=== PATIENT | female | born 1985 | race Caucasian/White ===

== ENCOUNTER → 2017-09-03 18:15 | Observation (INO) ==
[2017-09-03 17:19] LABS: Bilirubin,Urine Negative (Negative); Blood,Urine Negative (Negative); Clarity,Urine Cloudy (Clear); Color,Urine Yellow (Yellow); Glucose,Urine (UA) Normal (Normal); Ketones,Urine Negative (Negative); Leukocyte Esterase,Urine Small (Negative); Nitrite,Urine Negative (Negative); PH,Urine 6.5 pH Units (5.0-8.0); Protein,Urine Negative (Neg-Trace); Specific Gravity,Urine 1.016 (1.010-1.025); Urobilinogen,Urine Normal (Normal)
[2017-09-03 17:20] LABS: Bacteria,Urine None Seen per hpf (None-Few); Hyaline Casts,Urine None Seen per lpf (None-Few); RBC,Urine 0-3 per hpf (0-3); Squamous Epithelial Cell,Urine Many per lpf (None-Few); WBC,Urine 0-3 per hpf (0-3)
[2017-09-03 17:22] LABS: Basophils % 0.3 %; Eosinophils # 0.1 K/mcL (0.0-0.6); Eosinophils % 0.6 %; Hematocrit 36.8 % (35.3-44.9); Hemoglobin 12.8 g/dL (11.5-15.4); Immature Granulocytes % 0.5 % (0-4); Lymphocytes # 2.5 K/mcL (0.6-4.6); Lymphocytes % 19.7 %; Mean Corpuscular HGB Conc 34.8 g/dL (31.6-35.5); Mean Corpuscular Hemoglobin 30.3 pg (28.0-33.3); Mean Platelet Volume 10.8 fL (9.4-12.4); Monocytes % 7.8 %; Neutrophils # 9.1 K/mcL (1.6-8.9); Platelet Count 185 K/mcL (140-400); Red Blood Count 4.23 M/mcL (3.82-4.97); Red Cell Distribution Width 13.3 % (11.5-14.5); Segmented Neutrophils % 71.1 %
[2017-09-03 17:33] LABS: Amphetamine Screen,Urine Negative ng/mL (Cutoff=1000); Barbiturate Screen,Urine Negative ng/mL (Cutoff=200); Benzodiazepines Screen,Urine Negative ng/mL (Cutoff=200); Cannabinoid Screen,Urine Negative ng/mL (Cutoff = 50); Cocaine Screen,Urine Negative ng/mL (Cutoff= 300); Opiate Screen,Urine Negative ng/mL (Cutoff=300); Phencyclidine Screen,Urine Negative ng/mL (Cutoff=25); Protein/Creatinine Ratio,Urine 0.16 mg/mg (0.00-0.20)
[2017-09-03 17:39] LABS: Alanine Aminotransferase 13 Units/L (7-52); Aspartate Amino Transferase 17 Units/L (13-39); BUN/Creatinine Ratio 24 (6-26); Blood Urea Nitrogen 10 mg/dL (6-20); Lactate Dehydrogenase 143 Units/L (140-271); Uric Acid 4.8 mg/dL (2.3-7.6); eGFR For African Americans > 60 (> 60); eGFR For Non-African Americans > 60 (> 60)
--- NOTE | 2017-09-03 18:11 | OB/GYN Progress Note ---
Date of Encounter: 09/03/17 Time of Encounter: 18:08 - Assessment and Plan (1) 36 weeks gestation of Current Visit: Yes Status: Acute Follow-up on Friday with Dr. Ochoa labor precautions given Labor precautions given Preeclampsia precautions given Discharge home (2) NST (non-stress test) reactive on surveillance Current Visit: Yes Status: Acute (3) Gestational hypertension Current Visit: Yes Status: Acute Start labetalol 100 mg twice a day per consult with Dr. Rodríguez Qualifiers: Trimester: third trimester Qualified Code(s): O13.3 - Gestational [ -induced] hypertension without significant proteinuria, third trimester Subjective - Subjective Principal diagnosis: GHTN Interval history: As well as is a 32-year-old who presents from the office today for -induced hypertension evaluation. She reports she has had a headache off and on for about a week. She has tried nothing at home to resolve this headache because it does not bother her enough to take anything. She denies blurry vision and epigastric pain. She endorses good movement and denies contractions, leakage of fluid, vaginal bleeding. Antepartum ROS: movement normal, no loss of fluid, no vaginal bleeding, no contractions Objective - Exam FHR: category 1 FHR comments: Baseline 130 Moderate variability Accelerations present 15 x 15 No decelerations FHR category I Rare contractions on toco-patient denies feeling them. Auscultation: bilateral: normal Abdomen: Present: normal appearance, soft, gravid Uterus: Present: normal, firm - Labs Labs: Abnormal lab results WBC 12.7 K/mcL (4.3-11.1) H 09/03/17 17:00 Neutrophils # 9.1 K/mcL (1.6-8.9) H 09/03/17 17:00 Creatinine 0.42 mg/dL (0.60-1.20) L 09/03/17 17:00 Urine Clarity Cloudy (Clear) A 09/03/17 16:35 Ur Leukocyte Esterase Small (Negative) H 09/03/17 16:35 Ur Squamous Epith Cells Many per lpf (None-Few) H 09/03/17 16:35
[~2017-09-03 18:15] MED LIST: Acetaminophen 325 MG TABLET PO ONE
== END | disposition home or self-care (01) ==
LOC: 1NENULAB
PROVIDERS: ADMIT Advanced Practice Midwife; ATTEND Advanced Practice Midwife

== ENCOUNTER → 2017-09-09 17:12 | Observation (INO) ==
[2017-09-09 15:42] LABS: Basophils % 0.2 %; Eosinophils % 0.3 %; Hematocrit 37.4 % (35.3-44.9); Hemoglobin 13.1 g/dL (11.5-15.4); Immature Granulocytes % 0.4 % (0-4); Lymphocytes # 2.1 K/mcL (0.6-4.6); Lymphocytes % 17.8 %; Mean Corpuscular Hemoglobin 30.5 pg (28.0-33.3); Mean Platelet Volume 11.3 fL (9.4-12.4); Monocytes # 0.8 K/mcL (0.0-1.3); Neutrophils # 8.6 K/mcL (1.6-8.9); Platelet Count 159 K/mcL (140-400); Red Cell Distribution Width 13.4 % (11.5-14.5); Segmented Neutrophils % 74.3 %
[2017-09-09 15:51] LABS: Amphetamine Screen,Urine Negative ng/mL (Cutoff=1000); Barbiturate Screen,Urine Negative ng/mL (Cutoff=200); Benzodiazepines Screen,Urine Negative ng/mL (Cutoff=200); Cannabinoid Screen,Urine Negative ng/mL (Cutoff = 50); Cocaine Screen,Urine Negative ng/mL (Cutoff= 300); Opiate Screen,Urine Negative ng/mL (Cutoff=300); Phencyclidine Screen,Urine Negative ng/mL (Cutoff=25)
[2017-09-09 16:00] LABS: Creatinine,Urine 26 mg/dL
[2017-09-09 16:02] LABS: Alanine Aminotransferase 14 Units/L (7-52); Aspartate Amino Transferase 21 Units/L (13-39); BUN/Creatinine Ratio 22 (6-26); Blood Urea Nitrogen 11 mg/dL (6-20); Lactate Dehydrogenase 164 Units/L (140-271); Uric Acid 5.3 mg/dL (2.3-7.6); eGFR For African Americans > 60 (> 60); eGFR For Non-African Americans > 60 (> 60)
--- NOTE | 2017-09-09 17:10 | Discharge Summary ---
Date of Encounter: 09/09/17 Time of Encounter: 17:08 - Discharge Diagnosis (1) 37 weeks gestation of Priority: Primary Status: Acute Comments: admitted for observation (2) Gestational hypertension Priority: Secondary Status: Acute Comments: Patient taking labetalol 100mg po BID Normal PIH labs BPs WNL Qualifiers: Trimester: third trimester Qualified Code(s): O13.3 - Gestational [ -induced] hypertension without significant proteinuria, third trimester (3) NST (non-stress test) reactive on surveillance Priority: Secondary Status: Acute Comments: baseline 130 bpm moderate variability +15x15 accels no decels noted. Irregular contractions. Cat. 1 tracing - Discharge Medications Home Medications: Labetalol [Trandate] 100 mg PO BID #60 tablet 09/03/17 [Rx] Vit/Iron Fumarate/FA [ Tablet] 1 tab PO DAILY 09/09/17 [History ] Allergies/Adverse Reactions: 3 Allergy/AdvReac Type Severity Reaction Status Date / Time No Known Allergies Allergy Verified 09/09/17 15:24 Data Procedures and tests throughout hospitalization: Laboratory Tests 09/09/17 09/09/17 09/09/17 15:24 15:24 15:24 WBC 11.6 H RBC 4.30 Hgb 13.1 Hct 37.4 MCV 87.0 MCH 30.5 MCHC 35.0 RDW 13.4 Plt Count 159 MPV 11.3 Immature Gran % 0.4 Seg Neutrophils % 74.3 Lymphocytes % 17.8 Monocytes % 7.0 Eosinophils % 0.3 Basophils % 0.2 Neutrophils # 8.6 Lymphocytes # 2.1 Monocytes # 0.8 Eosinophils # 0.0 Basophils # 0.0 BUN 11 Creatinine 0.49 L Est GFR ( Amer) > 60 Est GFR (Non-Af Amer) > 60 BUN/Creatinine Ratio 22 Uric Acid 5.3 AST 21 ALT 14 Lactate Dehydrogenase 164 Urine Creatinine 26 Protein/Creatinin Ratio TNP Urine Total Protein < 4 Urine Opiates Screen Negative Ur Barbiturates Screen Negative Ur Phencyclidine Scrn Negative Ur Amphetamines Screen Negative U Benzodiazepines Scrn Negative Urine Cocaine Screen Negative U Marijuana (THC) Screen Negative Labs on day of discharge: Labs from last 24 hours 09/09/17 09/09/17 09/09/17 15:24 15:24 15:24 WBC 11.6 H RBC 4.30 Hgb 13.1 Hct 37.4 MCV 87.0 MCH 30.5 MCHC 35.0 RDW 13.4 Plt Count 159 MPV 11.3 Immature Gran % 0.4 Seg Neutrophils % 74.3 Lymphocytes % 17.8 Monocytes % 7.0 Eosinophils % 0.3 Basophils % 0.2 Neutrophils # 8.6 Lymphocytes # 2.1 Monocytes # 0.8 Eosinophils # 0.0 Basophils # 0.0 BUN 11 Creatinine 0.49 L Est GFR ( Amer) > 60 Est GFR (Non-Af Amer) > 60 BUN/Creatinine Ratio 22 Uric Acid 5.3 AST 21 ALT 14 Lactate Dehydrogenase 164 Urine Creatinine 26 Protein/Creatinin Ratio TNP Urine Total Protein < 4 Urine Opiates Screen Negative Ur Barbiturates Screen Negative Ur Phencyclidine Scrn Negative Ur Amphetamines Screen Negative U Benzodiazepines Scrn Negative Urine Cocaine Screen Negative U Marijuana (THC) Screen Negative Date of admission: 09/09/17 15:06 Primary care physician: Ginger Hassan MD Discharging clinician: Mei Elise Anticipated date of discharge: 09/09/17 - Patient Status Disposition: Home, Self-Care Condition: Good Functional capacity at discharge: independent ambulation - Discharge Instructions Follow Up With: Ginger Hassan MD [Primary Care Provider] - Nidhi Ochoa DO [Partnered Physician] - - Diet and Activity Activity: increase activity as tolerated Diet: regular diet Hospital Course DOG HANDLER Hospital course: Patient is a 32 y/o at 37w5d presents to labor and delivery for PIH evaluation following an elevated BP in office. Patient was diagnosed with Gestational Hypertension last week and started on Labetalol 100mg BID. Patient denies headache, visual disturbances or epigastric pain. Time Attestation: Total time spent providing and/or coordinating discharge services: Time Spent: Less than 30 minutes Exam - Constitutional General appearance IM: A&O X 3, pleasant, answers questions appropriately - Respiratory Respiratory exam: Present: CTAB - Cardiovascular Cardiovascular exam IM: Present: RRR, +S1, +S2 - Extremities Exam Extremities exam IM: Present: full ROM, normal capillary refill, normal inspection - Neurological Exam Neurological exam: alert, oriented X3, reflexes normal - VTE Reasons for not Prescribing Prophylaxis: Treatment not Indicated - Low risk for VTE
== END | disposition home or self-care (01) ==
LOC: 1NENULAB
PROVIDERS: ADMIT Obstetrics & Gynecology; ATTEND Obstetrics & Gynecology

== ENCOUNTER 2017-09-17 23:00 | Inpatient (IN) ==
[2017-09-17] MEDS ORDERED: Metoclopramide 10 MG/2 ML VIAL IVP PRN (23:02)
[2017-09-17] MEDS ORDERED: Lidocaine 1% 20 ML MDV INFILT PRN (23:02)
[2017-09-17] MEDS ORDERED: *HR* Nalbuphine 10 MG/ML AMPUL IVP PRN (23:02)
[2017-09-17] MEDS ORDERED: Ondansetron 4 MG/2 ML VIAL IVP PRN (23:02)
[2017-09-17] MEDS ORDERED: Famotidine 20 MG/2 ML VIAL IVP PRN (23:02)
[2017-09-17] MEDS ORDERED: Naloxone 0.4 MG/ML INJ IVP PRN (23:02)
[2017-09-17] MEDS ORDERED: Oxytocin 20 units/ LR 1000 mL 20 UNIT/1,000 ML BAG IVC SCH (23:15)
[2017-09-17] MEDS ORDERED: Ringers Solution, Lactated 1,000 ML IVC SCH (23:15)
[2017-09-17 23:58] LABS: Amphetamine Screen,Urine Negative ng/mL (Cutoff=1000); Barbiturate Screen,Urine Negative ng/mL (Cutoff=200); Benzodiazepines Screen,Urine Negative ng/mL (Cutoff=200); Cannabinoid Screen,Urine Negative ng/mL (Cutoff = 50); Cocaine Screen,Urine Negative ng/mL (Cutoff= 300); Opiate Screen,Urine Negative ng/mL (Cutoff=300); Phencyclidine Screen,Urine Negative ng/mL (Cutoff=25)
[2017-09-18 00:09] LABS: Alanine Aminotransferase 13 Units/L (7-52); Aspartate Amino Transferase 15 Units/L (13-39); BUN/Creatinine Ratio 22 (6-26); Blood Urea Nitrogen 10 mg/dL (6-20); Lactate Dehydrogenase 131 Units/L (140-271); eGFR For African Americans > 60 (> 60); eGFR For Non-African Americans > 60 (> 60)
[2017-09-18 00:23] LABS: Basophils % 0.4 %; Eosinophils # 0.1 K/mcL (0.0-0.6); Hematocrit 36.6 % (35.3-44.9); Hemoglobin 12.6 g/dL (11.5-15.4); Immature Granulocytes % 0.3 % (0-4); Lymphocytes # 2.6 K/mcL (0.6-4.6); Lymphocytes % 25.4 %; Mean Corpuscular HGB Conc 34.4 g/dL (31.6-35.5); Mean Corpuscular Hemoglobin 30.5 pg (28.0-33.3); Mean Corpuscular Volume 88.6 fL (83.0-100.0); Mean Platelet Volume 11.7 fL (9.4-12.4); Monocytes # 0.9 K/mcL (0.0-1.3); Monocytes % 8.7 %; Neutrophils # 6.7 K/mcL (1.6-8.9); Platelet Count 181 K/mcL (140-400); Red Blood Count 4.13 M/mcL (3.82-4.97); Red Cell Distribution Width 13.5 % (11.5-14.5); Segmented Neutrophils % 64.2 %
--- NOTE | 2017-09-18 00:45 | OB/GYN History & Physical ---
Date of Encounter: 09/18/17 Time of Encounter: 00:45 Assessment and Plan (1) 39 weeks gestation of Current visit: Yes Status: Acute Admit for IOL due to gestational hypertension. PIH labs WNL. BP mild range. Plan for pitocin induction. AROM when able. Epidural when requested. GBS negative Anticipate . (2) Rh negative state in antepartum period Current visit: Yes Status: Acute Rhogam if indicated (3) Gestational hypertension Current visit: No Status: Acute Qualifiers: Trimester: third trimester Qualified Code(s): O13.3 - Gestational [ -induced] hypertension without significant proteinuria, third trimester History of Present Illness Chief complaint: gestational hypertension HPI: Ms. Ryan is a 32 year old female presenting at 39 weeks gestation for IOL due to gestational hypertension. She reports her blood pressures started going up around 36 weeks but have been well controlled on labetalol 100 daily. She denies any complaints including headache or vision changes at this time. Good FM. This has been otherwise uncomplicated. Blood type O negative Rubella immune Serologies negative GBS negative Past Med Surg Social Fam HX - Past Medical History Medical history: no medical history, non-contributory Psychiatric history: no psych history - Past Surgical History Surgical History: herniorrhaphy Additional surgical history: hernia repair 1988 - Social History Smoking Status: Never smoker Smokeless Tobacco Status: No Alcohol use: none Drug use: none - Family History Father Living Status: Still Living Hx Family Cardiac Disorders: No Hx Family Respiratory Disorders: No Hx Family Cancer: No Hx Family GI Disorders: No Hx Family Endocrine Disorder: No Hx Family Neuromuscular Disorders: No Hx Family Neurologic Disorders: No Hx Family HEENT Disorders: No Hx Family Autoimmune Disorders: No Obstetrical History - Pregnancies : 2 Para: 1 Term: 1 : 0 Ab's: 0 Livin Medications and Allergies Vit/Iron Fumarate/FA [ Tablet] 1 tab PO DAILY 09/09/17 [History ] Labetalol [Trandate] 100 mg PO DAILY 09/17/17 [History] 3 Allergy/AdvReac Type Severity Reaction Status Date / Time No Known Allergies Allergy Verified 09/09/17 15:24 Review of System OB All systems PM: reviewed and no additional remarkable complaints except as stated Exam - Constitutional Constitutional: well developed, well nourished, no acute distress - HEENT HEENT: Mucus Membranes Moist - Lungs Respiratory exam: CTAB - Cardiovascular Cardiovascular exam: RRR - Abdomen Abdomen: Present: gravid, non tender - Extremities Extremities exam: normal inspection, pedal edema (mild edema bilaterally) Deep Tendon Reflex Grade: 2+ Normal - Cervix Dilation: 4 Effacement: 50 Station: -3 - Anus/Rectum Anus/Rectum: Present: normal perianal skin Results Result Diagrams: 09/17/17 23:03 09/17/17 23:03 Abnormal lab results Creatinine 0.45 mg/dL (0.60-1.20) L 09/17/17 23:03 Lactate Dehydrogenase 131 Units/L (140-271) L 09/17/17 23:03 All other labs normal. - VTE Reasons for not Prescribing Prophylaxis: Treatment not Indicated - Low risk for VTE
--- NOTE | 2017-09-18 02:32 | OB Labor Progress Note ---
Date of Encounter: 09/18/17 Time of Encounter: 02:30 Labor Progress Note - Subjective Subjective: Patient reports contractions getting more uncomfortable on the peanut ball - Vital Signs Vital Signs: 120/76 - Cervix Cervix: 5.5/75/-3 - Heart Tones Heart Tones: category 1, baseline 123 - Interventions Interventions: AROM with clear fluid, IUPC placed without difficulty - Plan Plan: Continue pitocin induction with epidural as requested
--- NOTE | 2017-09-18 02:41 | Anesthesia Evaluation PreOp ---
Date of Encounter: 09/18/17 Time of Encounter: 02:39 - Past History Planned Operation: giuliana Cardiac History: Denies any Significant Hx, HTN (pih) Pulmonary History: Denies Any Significant HX URGENT CARE NURSE PRACTITIONER History: Denies Any Significant HX Other Medical History: GERD Anesthesia History: No Prior Anesthetic Complications, Past Anesthesia (giuliana, hernia age 3) : Yes Test: Positive Alcohol Use: none Drug use: none Medications and Allergies Vit/Iron Fumarate/FA [ Tablet] 1 tab PO DAILY 09/09/17 [History ] Labetalol [Trandate] 100 mg PO DAILY 09/17/17 [History] 3 Allergy/AdvReac Type Severity Reaction Status Date / Time No Known Allergies Allergy Verified 09/09/17 15:24 - Meds/Allergy Pre-op Review Medications Reviewed: Yes Allergies Reviewed: Yes Beta Blockers on Current Med List: Yes If Beta Blockers taken, Date/Time (Last Dose taken): 09/18 0600 Anesthesia Results - Labs 09/17/17 23:03 09/17/17 23:03 Anesthesia Exam 137/78 72 fht 128 Height: 6' Weight: 118 NPO (# of Hours): 3 Pain Scale: 5 Pain Scale Used: Numeric (1 - 10) - HEENT Pupil (Motor): Pupils equal Oral Opening: Greater than 3 - URGENT CARE NURSE PRACTITIONER LOC: Oriented URGENT CARE NURSE PRACTITIONER Motor: Normal RUE, Normal LUE, Normal RLE, Normal LLE, Normal Face URGENT CARE NURSE PRACTITIONER Sensory: Normal: RUE, LUE, RLE, LLE, Face - Cardiac Rhythm: Regular Murmur: None - Pulmonary Breath Sounds: bilateral Clear Respiratory Effort: Symmetrical Anesthesia Assess/Plan ASA Score: 2 Modified Justice Scale for Level of Consciousness: Cooperative, oriented, and tranquil Anesthetic Plan: Regional Monitoring Plan: Standard Monitors Recovery Plan: Other (risks discussed questions answered, consented)
[2017-09-18] MEDS ORDERED: *HR* FentaNYL (PF) 100 MCG/2 ML VIAL EP ONE (02:42)
[2017-09-18] MEDS ORDERED: *HR* FentaNYL (PF) 100 MCG/2 ML VIAL ONE (02:44)
[2017-09-18] MEDS ORDERED: Epidural Premix (fent/bupiv) 110 ML EP SCH (02:45)
[2017-09-18] MEDS ORDERED: Lidocaine -MPF 2% 5 ML VIAL ONE (02:45)
--- NOTE | 2017-09-18 03:22 | Anesthesia Procedures ---
Date of Encounter: 09/18/17 Time of Encounter: 03:20 Procedures: Anesthesia - Epidural/Spinal Patient ID/Chart reviewed: Yes Patient examined: Yes OB Eval: Gestational age: 39 OB Eval: : 2 OB Eval: Hx Para: 1 OB Eval: Dilated at (cm): 6 OB Eval: Contractions: Non-stressed pattern Consent Obtained: Yes Supplemental Oxygen: None/Room Air Site Prep: Aseptic Technique, Sterile prep and drape, 0.5% Chlorhexidine/Alcohol Patient position: upright Local Anesthetic: Lidocaine 1% Amount of Local Anesthetic used: 3 Touhy Needle Gauge: 18 Touhy Needle Depth (cm): 10 Catheter Depth at Skin (cm): 20 Test Dose (1.5% Lido + Epi): Volume given (mls): 3 Test Dose Result: Negative Loading Dose: Fentanyl (mcg): 100 Loading Dose: Other: rop 0.2% 10cc Loading Dose Administered: Thru Touhy Needle Infusion Med: 0.125% Bupivacaine w/ 2 mcg/ml Fentanyl Infusion Rate (mls/hr): [address]: Tegaderm Interspace Used: L2-L3 Loss of Resistance (LISA): Yes Blood: No CSF: No Paresthesia: No Procedure: aseptic, inocencio well, VSS, effective Vitals + FHT's: 106/76 66 fht 134
--- NOTE | 2017-09-18 07:31 | OB/GYN Procedure Note ---
Delivery - Delivery Date: 09/18/17 Provider: Nidhi Ochoa Intrapartum events: none Delivery induction: AROM, oxytocin Delivery monitor: external FHT, external uterine, internal FHT, internal uterine Anesthesia: epidural Quantitated Blood Loss: 200 - (s) Infant A Delivery Date: 09/18/17 Delivery Time: 07:06 Presentation: vertex Position: ROHAN Route of delivery: Gender: Male Viability: Viable Pounds: 7 Ounces: 13 Weight Gram: 3.54 kg at 1 minute: 8 at 5 mins: 9 Shoulder Dystocia: not encountered Specimens collected: cord blood Placenta: spontaneous Cord: 3 umbilical vessels - Repair Episiotomy: none Laceration Description: Perineal - 1st Degree - Complications Delivery complications: none Delivery comments: Called to room with patient complete and +2 station. Under maternal effort she delivered a viable male weighing 7 lbs. 13 oz. and Apgars 8 and 9 at one and 5 minutes respectively over a first degree perineal laceration. Following delivery of the head and bulb suction. Baby delivered in the ROHAN presentation and right hand was noted to be at the chin. The right, posterior arm was then delivered without difficulty. The remainder of delivered with maternal effort. was placed on mom's abdomen. Cord was allowed to cease pulsations and was double clamped and cut. Cord blood was collected. Placenta delivered spontaneously, complete, and intact with a three-vessel cord. First-degree perineal laceration was repaired using 3-0 Vicryl in standard fashion. Mother and infant recovering in the LDR in stable condition - Disposition Mom disposition: stable in LDR disposition: stable in LDR
[2017-09-18] MEDS ORDERED: Rho Immune Globulin 1,500 UNIT SYRINGE IM PRN (10:07)
[2017-09-18] MEDS ORDERED: Acetaminophen 325 MG TABLET PO PRN (10:07)
[2017-09-18] MEDS ORDERED: Oxytocin 20 units/ LR 1000 mL 20 UNIT/1,000 ML BAG IVC SCH (10:07)
[2017-09-18] MEDS ORDERED: Ibuprofen 600 MG TABLET PO PRN (10:07)
[2017-09-18] MEDS: Prenatal Vit/FA 1 EACH TABLET PO SCH (19:49)
--- NOTE | 2017-09-19 09:58 | Discharge Summary ---
Date of Encounter: 09/19/17 Time of Encounter: 09:53 - Discharge Diagnosis (1) Vaginal delivery Priority: Primary Status: Acute Comments: continue routine care discharge home today follow up with Dr. Ochoa in 4 weeks (2) Gestational hypertension Priority: Secondary Status: Acute Comments: BPs and labs WNL Qualifiers: Trimester: third trimester Qualified Code(s): O13.3 - Gestational [ -induced] hypertension without significant proteinuria, third trimester - Discharge Medications Prescriptions: Ibuprofen [Motrin] 600 mg PO Q6HR PRN #60 tablet PRN Reason: Cramping Home Medications: Ibuprofen [Motrin] 600 mg PO Q6HR PRN #60 tablet 09/19/17 [Rx] Vit/FA 1 each PO DAILY tablet 09/19/17 [Rx] Allergies/Adverse Reactions: 3 Allergy/AdvReac Type Severity Reaction Status Date / Time No Known Allergies Allergy Verified 09/09/17 15:24 Data Procedures and tests throughout hospitalization: Laboratory Tests 09/17/17 09/17/17 09/17/17 23:03 23:03 23:21 WBC 10.4 RBC 4.13 Hgb 12.6 Hct 36.6 MCV 88.6 MCH 30.5 MCHC 34.4 RDW 13.5 Plt Count 181 MPV 11.7 Immature Gran % 0.3 Seg Neutrophils % 64.2 Lymphocytes % 25.4 Monocytes % 8.7 Eosinophils % 1.0 Basophils % 0.4 Neutrophils # 6.7 Lymphocytes # 2.6 Monocytes # 0.9 Eosinophils # 0.1 Basophils # 0.0 BUN 10 Creatinine 0.45 L Est GFR ( Amer) > 60 Est GFR (Non-Af Amer) > 60 BUN/Creatinine Ratio 22 Uric Acid 5.0 AST 15 ALT 13 Lactate Dehydrogenase 131 L Urine Opiates Screen Negative Ur Barbiturates Screen Negative Ur Phencyclidine Scrn Negative Ur Amphetamines Screen Negative U Benzodiazepines Scrn Negative Urine Cocaine Screen Negative U Marijuana (THC) Screen Negative Ur Drug Screen Interp See Below Screen Baby's Blood Type Mother's Blood Type Rhogam Indicated Rhogam Req for Mother 09/18/17 07:30 WBC RBC Hgb Hct MCV MCH MCHC RDW Plt Count MPV Immature Gran % Seg Neutrophils % Lymphocytes % Monocytes % Eosinophils % Basophils % Neutrophils # Lymphocytes # Monocytes # Eosinophils # Basophils # BUN Creatinine Est GFR ( Amer) Est GFR (Non-Af Amer) BUN/Creatinine Ratio Uric Acid AST ALT Lactate Dehydrogenase Urine Opiates Screen Ur Barbiturates Screen Ur Phencyclidine Scrn Ur Amphetamines Screen U Benzodiazepines Scrn Urine Cocaine Screen U Marijuana (THC) Screen Ur Drug Screen Interp Screen NEGATIVE Baby's Blood Type A RH POSITIVE Mother's Blood Type O RH NEGATIVE Rhogam Indicated YES Rhogam Req for Mother 1 Labs on day of discharge: Labs from last 24 hours 09/18/17 07:30 Screen NEGATIVE Baby's Blood Type A RH POSITIVE Mother's Blood Type O RH NEGATIVE Rhogam Indicated YES Rhogam Req for Mother 1 Date of admission: 09/17/17 23:00 Primary care physician: Ginger Hassan MD Consults: 09/18/17 10:07 Consult to Water Taxi Driver [CONS] Routine Comment: Vaginal delivery, consult needed Discharging clinician: Mei Elise Anticipated date of discharge: 09/19/17 - Patient Status Disposition: Home, Self-Care Condition: Good Functional capacity at discharge: independent ambulation - Discharge Instructions Follow Up With: Ginger Hassan MD [Primary Care Provider] - Nidhi Ochoa DO [Partnered Physician] - - Diet and Activity Activity: increase activity as tolerated Diet: regular diet Hospital Course Reason for admission: induction of labor Delivery: Episiotomy: none Other procedures: none complications: none Discharge diagnosis: IUP at term delivered [place] baby: male (bottle feeding) Time Attestation: Total time spent providing and/or coordinating discharge services: Time Spent: Less than 30 minutes Exam - Constitutional Vitals: Temp Pulse Resp BP Pulse Ox 97.8 F 80 14 115/73 98 09/19/17 04:05 09/19/17 04:05 09/19/17 04:05 09/19/17 04:05 09/19/17 04:05 General appearance IM: A&O X 3, pleasant, answers questions appropriately - Respiratory Respiratory exam: Present: CTAB - Cardiovascular Cardiovascular exam IM: Present: RRR, +S1, +S2 - GI/Abdominal GI/Abdominal exam IM: normal bowel sounds - Uterine Tone: Firm Uterus Position: 2 Fingers Below Umbilicus, Midline - Extremities Exam Extremities exam IM: Present: full ROM, normal capillary refill, normal inspection - Neurological Exam Neurological exam: alert, oriented X3, reflexes normal
[2017-09-19 11:38] VITALS: BP 140/83
[2017-09-19] MEDS: Prenatal Vit/FA 1 EACH TABLET PO SCH (12:05)
== END 2017-09-19 12:48 | disposition home or self-care (01) | DRG 775 ==
LOC: 1NENULAB 23:00 → 1NENUOBS 09-18 09:55
PROVIDERS: ADMIT Obstetrics & Gynecology; ATTEND Obstetrics & Gynecology